=== PATIENT | female | born 1970 | race African-American/Black ===

== ENCOUNTER 2020-02-17 16:25 | Emergency (ER) | payer OTHER, SELFPAY ==
[~2020-02-17] VITALS: Ht 170.2 cm; Wt 96.6 kg
[2020-02-17 16:27] VITALS: Ht 170.2 cm; Wt 96.6 kg
[2020-02-17 18:23] VITALS: BP 174/105
== END 2020-02-17 18:23 | disposition home or self-care (01) ==
LOC: ED 16:25
DX: B34.9 Viral infection, unspecified (principal); I10 Essential (primary) hypertension; Z20.828 Contact with and (suspected) exposure to other viral communicable diseases
CPT/HCPCS: U0003